=== PATIENT | female | born 1960 | race Caucasian/White ===

== ENCOUNTER → 2016-10-18 | Outpatient (CLI) | payer BC ==
[~2016-10-18] MED LIST: CYAN10006 IN; DIPH25CA84 PO; FOLI1TAB15 PO; IBUP-2067 PO; INSU100C11 SQ; INSU100V SQ; OXYC5SOL PO; URSO300C12 PO; WARF2.5T48 PO; WARF5TAB76 PO
--- NOTE | 2016-10-18 12:55 | DI ---
INDICATION: ITS.REASON: PNEUMONIA PROCEDURE: CHEST 2-VIEWS UPRIGHT (PA \T\ LAT) Encounter: Initial COMPARISON: September 12, 2016 FINDINGS: Linear atelectasis or scarring in the right base. There are some prominent interstitial markings bilaterally with possible Gerald B lines present. No focal consolidative pneumonia, pleural effusion or pneumothorax. Heart size and mediastinal contours are stable. Impression: No pneumonia. Possible mild pulmonary vascular congestion or edema. .
== END ==
LOC: IMA 12:02
PROVIDERS: ATTEND Internal Medicine Infectious Disease
DX: R91.8 Other nonspecific abnormal finding of lung field (principal)